=== PATIENT | male | born 2000 | race Hispanic/Latino ===

== ENCOUNTER 2018-02-12 22:48 | Emergency (ER) | payer BC ==
[2018-02-12 23:33] LABS: Urine Blood TRACE (NEG); Urine Glucose NEGATIVE (NEG); Urine Protein 2+ (NEG); Urine Specific Gravity 1.025 (1.005-1.030)
[2018-02-12 23:48] LABS: Urine Amorphous Sediment 2+ /HPF (NONE SEEN); Urine Bacteria <20 /HPF (NONE SEEN); Urine Culture Reflex Order NOT NEEDED; Urine Mucus HEAVY /HPF (NONE SEEN); Urine RBC <5 /HPF (NONE SEEN)
--- NOTE | 2018-02-13 00:38 | ER ---
Nurse's Notes [facility] Name: Antonio Duvall Age: 17 yrs Sex: Male : 2000 Arrival Date: 02/12/2018 Time: 22:49 Bed 15 Private MD: Santos Gomez W Diagnosis: Lower abdominal pain, unspecified;Low back pain Presentation: 02/12 23:01 Presenting complaint: Patient states: he is having low back pain which is constant and bb intermittent abdominal pain which is "confusing" he does not know if he needs to vomit or to eat so he tried both but it did not help. He also has had restless legs with leg cramping. He denies fever, vomiting, diarrhea, dysuria. Transition of care: patient was not received from another setting of care. Onset of symptoms was February 12, 2018. Risk Assessment: Do you want to hurt yourself or someone else? Patient reports no desire to harm self or others. Initial Sepsis Screen: Does the patient meet any 2 criteria? No. Patient's initial sepsis screen is negative. Does the patient have a suspected source of infection? No. Patient's initial sepsis screen is negative. Care prior to arrival: None. 23:01 Method Of Arrival: Ambulatory bb 23:01 Acuity: ALMAS 3 bb Historical: - Allergies: 23:03 No Known Allergies; bb - Home Meds: 23:03 None [Active]; bb - PMHx: 23:03 ADD/ADHD; bb - PSHx: 23:03 None; bb - Immunization history:: Adult Immunizations up to date. - Social history:: Smoking status: Patient/guardian denies using tobacco, Patient/guardian denies using alcohol, street drugs. - Ebola Screening: : No symptoms or risks identified at this time. Screenin:07 Abuse screen: Denies threats or abuse. Nutritional screening: No deficits noted. ea Tuberculosis screening: No symptoms or risk factors identified. Fall Risk None identified. Assessment: 23:01 General: Appears in no apparent distress. Behavior is calm, cooperative, appropriate ea for age. Pain: Complains of pain in right flank pain that radiates to lower abdomen Pain currently is 7 out of 10 on a pain scale. Neuro: Level of Consciousness is awake, alert, obeys commands, Oriented to person, place, time, situation. Cardiovascular: Heart tones S1 S2 Patient's skin is warm and dry. Respiratory: Airway is patent Respiratory effort is even, unlabored, Respiratory pattern is regular, symmetrical, Breath sounds are clear bilaterally. GI: Abdomen is flat, Bowel sounds present X 4 quads. Abd is soft and non tender X 4 quads. Reports pt states " I don't know weather I want to throw up or if I am hungry". : No signs and/or symptoms were reported regarding the genitourinary system. Derm: Skin is pink, warm \\T\\ dry. Musculoskeletal: No signs and/or symptoms reported regarding the musculoskeletal system. 02/13 00:06 Reassessment: Patient and/or family updated on plan of care and expected duration. Pain ea level reassessed. Patient is alert, oriented x 3, equal unlabored respirations, skin warm/dry/pink. 01:04 Reassessment: Patient and/or family updated on plan of care and expected duration. Pain ea level reassessed. Patient is alert, oriented x 3, equal unlabored respirations, skin warm/dry/pink. Discharge instructions given to patient, verbalized the understanding of instruction. Vital Signs: 02/12 23:03 BP 130 / 82; Pulse 73; Resp 16 S; Temp 97.8(O); Pulse Ox 100% on R/A; Weight 61.23 kg bb (R); Height 5 ft. 6 in. (167.64 cm) (R); Pain 7/10; 02/13 00:08 BP 120 / 76; Pulse 66; Resp 18; Pulse Ox 99% ; ea 00:55 BP 118 / 70; Pulse 60; Resp 18; Temp 97.6(O); Pulse Ox 98% on R/A; Pain 3/10; ea 02/12 23:03 Body Mass Index 21.79 (61.23 kg, 167.64 cm) bb ED Course: 02/12 22:49 Patient arrived in ED. am2 22:50 Godwin De La Paz MD is Private Physician. am2 22:50 Santos Gomez MD is Private Physician. am2 22:57 [facility] snw 22:57 Meir Pierson MD is Attending Physician. snw 23:01 Sima Combs RN is Primary Nurse. ea 23:03 Triage completed. bb 23:03 Arm band placed on Patient placed in an exam room, on a stretcher, on pulse oximetry. uriel Family accompanied patient. 23:07 Patient has correct armband on for positive identification. Bed in low position. Call ea light in reach. Side rails up X 1. Adult w/ patient. 23:55 CT Stone Protocol In Process Unspecified. EDMS 02/13 00:18 CT completed. Patient tolerated procedure well. Patient moved to CT via wheelchair. vr Patient moved back from CT. 01:05 No provider procedures requiring assistance completed. Patient did not have IV access ea during this emergency room visit. Administered Medications: 00:53 Drug: Bentyl 20 mg Route: PO; ea 01:05 Follow up: Response: No adverse reaction ea 00:53 Drug: Zofran 4 mg Route: PO; ea 01:06 Follow up: Response: No adverse reaction ea 00:53 Drug: TORadol 60 mg Route: IM; Site: right gluteus; ea 01:06 Follow up: Response: No adverse reaction ea Outcome: 00:37 Discharge ordered by . radha 01:05 Discharged to home ambulatory, with family. ea 01:05 Condition: improved 01:05 Discharge instructions given to patient, Instructed on discharge instructions, follow up and referral plans. medication usage, Demonstrated understanding of instructions, follow-up care, medications, Prescriptions given X 2. 01:08 Patient left the ED. ea Signatures: Dispatcher [employer] EDMN Sheila Galeano, TIRE STRIPPER-C TIRE STRIPPER-Csnw Diane Watters RN RN bb Davis, Victoria vr Moreno, Amanda am2 Antunez, Elena, RN RN ea Corrections: (The following items were deleted from the chart) 02/12 23:09 23:01 GI: Abdomen is flat, Bowel sounds present X 4 quads. Abd is soft and non tender X ea 4 quads. ea
--- NOTE | 2018-02-13 00:38 | EDPHYS ---
Physician Documentation [facility] Name: Antonio Duvall Age: 17 yrs Sex: Male : 2000 Arrival Date: 02/12/2018 Time: 22:49 Bed 15 Private MD: Santos Gomez W ED Physician Meir Pierson HPI: 02/12 23:14 This 17 yrs old Male presents to ER via Ambulatory with complaints of snw Abdominal Pain, Back Pain. 23:14 The patient presents with abdominal pain in the left lower quadrant. Onset: The snw symptoms/episode began/occurred gradually, 5 day(s) ago. The symptoms do not radiate. Associated signs and symptoms: Pertinent positives: nausea. The symptoms are described as crampy. Severity of pain: At its worst the pain was moderate. The patient has not experienced similar symptoms in the past. It is unknown whether or not the patient has recently seen a physician. Historical: - Allergies: 23:03 No Known Allergies; bb - Home Meds: 23:03 None [Active]; bb - PMHx: 23:03 ADD/ADHD; bb - PSHx: 23:03 None; bb - Immunization history:: Adult Immunizations up to date. - Social history:: Smoking status: Patient/guardian denies using tobacco, Patient/guardian denies using alcohol, street drugs. - Ebola Screening: : No symptoms or risks identified at this time. ROS: 23:12 Constitutional: Negative for fever and weight loss, + chills Eyes: Negative for injury, snw pain, redness, and discharge, ENT: Negative for injury, pain, and discharge, Neck: Negative for injury, pain, and swelling, Cardiovascular: Negative for chest pain, palpitations, and edema, Respiratory: Negative for shortness of breath, cough, wheezing, and pleuritic chest pain, Abdomen/GI: Negative for vomiting, diarrhea, and constipation, + nausea and abdominal pain to LLQ Back: Negative for injury and pain, : Negative for injury, bleeding, discharge, and swelling, MS/Extremity: Negative for injury and deformity, Skin: Negative for injury, rash, and discoloration, Neuro: Negative for headache, weakness, numbness, tingling, and seizure. Exam: 23:12 Constitutional: This is a well developed, well nourished patient who is awake, alert, snw and in no acute distress. Head/Face: Normocephalic, atraumatic. Eyes: Pupils equal round and reactive to light, extra-ocular motions intact. Lids and lashes normal. Conjunctiva and sclera are non-icteric and not injected. Cornea within normal limits. Periorbital areas with no swelling, redness, or edema. ENT: Nares patent. No nasal discharge, no septal abnormalities noted. Tympanic membranes are normal and external auditory canals are clear. Oropharynx with no redness, swelling, or masses, exudates, or evidence of obstruction, uvula midline. Mucous membranes moist. Neck: Trachea midline, no thyromegaly or masses palpated, and no cervical lymphadenopathy. Supple, full range of motion without nuchal rigidity, or vertebral point tenderness. No Meningismus. Chest/axilla: Normal chest wall appearance and motion. Nontender with no deformity. No lesions are appreciated. Cardiovascular: Regular rate and rhythm with a normal S1 and S2. No gallops, murmurs, or rubs. Normal PMI, no JVD. No pulse deficits. Respiratory: Lungs have equal breath sounds bilaterally, clear to auscultation and percussion. No rales, rhonchi or wheezes noted. No increased work of breathing, no retractions or nasal flaring. Back: No spinal tenderness. No costovertebral tenderness. Full range of motion. Skin: Warm, dry with normal turgor. Normal color with no rashes, no lesions, and no evidence of cellulitis. MS/ Extremity: Pulses equal, no cyanosis. Neurovascular intact. Full, normal range of motion. Neuro: Awake and alert, GCS 15, oriented to person, place, time, and situation. Cranial nerves II-XII grossly intact. Motor strength 5/5 in all extremities. Sensory grossly intact. Cerebellar exam normal. Normal gait. Psych: Awake, alert, with orientation to person, place and time. Behavior, mood, and affect are within normal limits. 23:12 Abdomen/GI: Inspection: abdomen appears normal, Bowel sounds: normal, Palpation: mild abdominal tenderness, moderate abdominal tenderness, in the left lower quadrant. Vital Signs: 23:03 BP 130 / 82; Pulse 73; Resp 16 S; Temp 97.8(O); Pulse Ox 100% on R/A; Weight 61.23 kg bb (R); Height 5 ft. 6 in. (167.64 cm) (R); Pain 7/10; 02/13 00:08 BP 120 / 76; Pulse 66; Resp 18; Pulse Ox 99% ; ea 00:55 BP 118 / 70; Pulse 60; Resp 18; Temp 97.6(O); Pulse Ox 98% on R/A; Pain 3/10; ea 02/12 23:03 Body Mass Index 21.79 (61.23 kg, 167.64 cm) bb MDM: 02/12 22:59 Patient medically screened. [facility] 02/13 00:40 Data reviewed: vital signs, nurses notes. Data interpreted: Pulse oximetry: on room air snw is 99 %. Interpretation: normal. Counseling: I had a detailed discussion with the patient and/or guardian regarding: the historical points, exam findings, and any diagnostic results supporting the discharge/admit diagnosis, lab results, radiology results, the need for outpatient follow up, to return to the emergency department if symptoms worsen or persist or if there are any questions or concerns that arise at home. Special discussion: Based on the patient's Hx, exam, and Dx evaluation, there is no indication for emergent surgery or inpatient Tx. It is understood by the patient/guardian that if the Sx's persist or worsen they need to return immediately for re-evaluation. Based on the history and exam findings, there is no indication for further emergent testing or inpatient evaluation. I discussed with the patient/guardian the need to see the primary care provider for further evaluation of the symptoms. 02/12 23:11 Order name: Urine Microscopic Only; Complete Time: 23:50 snw 02/12 23:24 Order name: Urine Dipstick--Ancillary (enter results); Complete Time: 23:50 ms 02/12 23:11 Order name: CT Stone Protocol snw 02/12 23:11 Order name: Urine Dipstick-Ancillary (obtain specimen); Complete Time: 23:28 snw Administered Medications: 00:53 Drug: Bentyl 20 mg Route: PO; ea 01:05 Follow up: Response: No adverse reaction ea 00:53 Drug: Zofran 4 mg Route: PO; ea 01:06 Follow up: Response: No adverse reaction ea 00:53 Drug: TORadol 60 mg Route: IM; Site: right gluteus; ea 01:06 Follow up: Response: No adverse reaction ea Disposition: 07:16 Co-signature as Attending Physician, Meir Pierson MD I agree with the assessment and [facility] plan of care. Disposition: 02/13/18 00:37 Discharged to Home. Impression: Lower abdominal pain, unspecified, Low back pain. - Condition is Stable. - Discharge Instructions: Abdominal Pain, Adult, Back Pain, Adult, Cryotherapy, Rehydration, Adult, Heat Therapy. - Prescriptions for Diclofenac Sodium 75 mg Oral Tablet Sustained Release - take 1 tablet by ORAL route 2 times per day; 30 tablet. orphenadrine citrate 100 mg Oral Tablet Sustained Release - take 1 tablet by ORAL route 2 times per day As needed; 20 tablet. - Work release form, Medication Reconciliation Form, Thank You Letter, Antibiotic Education, Prescription Opioid Use form. - Follow up: Private Physician; When: 2 - 3 days; Reason: Recheck today's complaints, Continuance of care, Re-evaluation by your physician. Follow up: Emergency Department; When: As needed; Reason: Worsening of condition. Signatures: Dispatcher [employer] Meir Grace MD MD cha Therrien, Shelly, EQUIPMENT OPERATOR-C EQUIPMENT OPERATOR-Csnw Diane Watters RN RN bb Antunez, Elena, RN RN ea Corrections: (The following items were deleted from the chart) 01:08 00:37 02/13/2018 00:37 Discharged to Home. Impression: Lower abdominal pain, ea unspecified; Low back pain. Condition is Stable. Forms are Medication Reconciliation Form, Thank You Letter, Antibiotic Education, Prescription Opioid Use. Follow up: Private Physician; When: 2 - 3 days; Reason: Recheck today's complaints, Continuance of care, Re-evaluation by your physician. Follow up: Emergency Department; When: As needed; Reason: Worsening of condition. snw
[2018-02-13] MEDS ORDERED: DICYCLOMINE HCL 10 MG CAP ONE (00:49)
[2018-02-13] MEDS ORDERED: KETOROLAC 30 MG/ML INJ ONE (00:49)
[2018-02-13] MEDS ORDERED: ONDANSETRON 4 MG (ODT) TAB ONE (00:50)
--- NOTE | 2018-02-13 08:12 | RAD REPORT ---
EXAM DESCRIPTION: CT - Stone Protocol - 02/13/2018 5:37 am CLINICAL HISTORY: Flank pain. ABD PAIN COMPARISON: No comparisons TECHNIQUE: Axial images were obtained without oral or IV contrast. Lack of contrast limits solid org an and vascular assessment. The [id number] spans the entirety of the system partially obscuring uppermost abdomen and lung bases. Coronal reformatted images were obtained and reviewed. All CT scans are performed using dose optimization technique as appropriate and may include automated exposure control or mA/KV adjustment according to patient size. FINDINGS: The lower lung be are clear. Imaged portions of the liver and spleen show no suspicious findings on non-contrast imaging. The panc reas and adrenal glands are normal. No pathologic lymphadenopathy in the abdomen or pelvis. No urinary tract stones or obstructive uropathy. No bowel obstruction, free air, free fluid or abscess. Normal appendix noted. Spondylosis L5-S1. IMPRESSION: No urinary tract stones or obstructive uropathy. Spondylosis L5-S1.
== END 2018-02-13 01:08 | disposition home or self-care (01) ==
LOC: ER 22:48
DX: M54.5 Low back pain (principal)
CPT/HCPCS: 74176; 76377; 81003; 81015; 96372; 99284

== ENCOUNTER 2018-05-14 22:22 | Emergency (ER) | payer BC ==
[2018-05-14 23:19] LABS: Absolute Lymphocytes (CBC) 1.4 K/uL (0.7-4.9); Absolute Monocytes 1.2 K/uL (0.1-1.3); Absolute Neutrophil 15.7 K/uL (1.8-8.0); Basophils % 0.3 % (0-1.3); Eosinophils % 0.1 % (0-4.4); Hematocrit 42.3 % (39.6-49.0); Lymphocytes % 7.7 % (15.3-44.8); MCH 30.5 pg (27.0-35.0); MCV 88.5 fL (80-100); MPV 7.3 fL (7.6-11.3); Monocytes % 6.5 % (3.3-12.3); RBC Red Blood Cell Count 4.78 M/uL (4.33-5.43)
[2018-05-14 23:41] LABS: Potassium 3.3 mmol/L (3.5-5.1)
[2018-05-15 00:17] LABS: Blood Morphology Comment NOT SEEN (NOT SEEN); Platelet Estimate ADEQ; Urine White Blood Cell Casts OK
[2018-05-15] MEDS ORDERED: LIDOCAINE 1% MPF 2 ML AMPULE ONE (01:00)
[2018-05-15] MEDS ORDERED: LIDOCAINE 1% MPF 30 ML VIAL ONE (01:03)
[2018-05-15] MEDS ORDERED: KETOROLAC 30 MG/ML INJ ONE (01:03)
[2018-05-15] MEDS ORDERED: SILVER NITRATE 1 APPL TOP ONE (01:25)
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
--- NOTE | 2018-05-16 07:03 | EKG ---
Test Date: 2018-05-14 Test Time: 23:21:37 L[employer] Machine Operator: SHIRLEY MEASUREMENT RESULTS: Intervals: Rate: 82 MS: 136 QRSD: 80 QT: 346 QTc: 404 [place]: P: 64 MS: 136 QRS: 70 T: 53 INTERPRETIVE STATEMENTS: Normal sinus rhythm Nonspecific T wave abnormality Abnormal ECG No previous ECG available for comparison Electronically Signed On 05-16-18 06:53:37 FARM HAND by Saulo Tapia
== END 2018-05-15 02:47 | disposition home or self-care (01) ==
LOC: ER 22:22
PROC: 0JQ10ZZ Repair Face Subcutaneous Tissue and Fascia, Open Approach (ICD-10-PCS; principal; 2018-05-15)
DX: S01.422A Laceration with foreign body of left cheek and temporomandibular area, initial encounter (principal); S60.222A Contusion of left hand, initial encounter; S60.221A Contusion of right hand, initial encounter; S90.02XA Contusion of left ankle, initial encounter; V48.5XXA Car driver injured in noncollision transport accident in traffic accident, initial encounter; Z72.0 Tobacco use
CPT/HCPCS: 36415; 70450; 70486; 71045; 72125; 72170; 76377; 80048; 85025; 93005; 96374; 99285; J2001